=== PATIENT | female | born 1995 ===

== ENCOUNTER 2018-10-19 12:12 | Emergency (ER) | payer BC ==
--- NOTE | 2018-10-19 13:17 | ED PDOC ---
HPI: General Adult Time Seen by Provider: 10/19/18 12:21 Chief Complaint (Nursing): ENT Problem Chief Complaint (Provider): Anxious, ENT complaints History Per: Patient, Continuing Education Dean (Deirdre Ramos #[id number]) History/Exam Limitations: no limitations Onset/Duration Of Symptoms: Sudden Onset (2 hours ago) Current Symptoms Are (Timing): Still Present Additional Complaint(s): 23 year old female presents to the ED for evaluation of feeling anxious / shaky with diffuse head/ears/nose/throat pain which was sudden onset two hours ago. Patient also notes paresthesia in hands, shortness of breath, palpitations, nausea, and four episodes of non-bloody non-bilious vomiting. She denies ever having these symptoms before, and identifies no particular stresses in her life currently. Otherwise, denies fever, visual changes, sick contact, recent travel, suicidal ideation, homicidal ideation, abdominal pain, chest pain, cough, and taking any meds prior to arrival. LNMP: 1 month ago PMD: none provided Past Medical History Reviewed: Historical Data, Nursing Documentation, Vital Signs Vital Signs: Last Vital Signs Temp 98.7 F 10/19/18 12:15 Pulse 66 10/19/18 12:15 Resp 18 10/19/18 12:15 BP 100/67 10/19/18 12:15 Pulse Ox 99 10/19/18 12:15 - Medical History PMH: No Chronic Diseases - Surgical History Surgical History: No Surg Hx - Family History Family History: States: Unknown Family Hx - Social History Current smoker - smoking cessation education provided: No Drugs: Denies - Home Medications Home Medications: Ambulatory Orders Medication Instructions Recorded Naproxen 500 mg PO BID PRN #20 tab 10/19/18 - Allergies Allergies/Adverse Reactions: Allergies Allergy/AdvReac Type Severity Reaction Status Date / Time No Known Allergies Allergy Verified 10/19/18 12:14 Review of Systems ROS Statement: Except As Marked, All Systems Reviewed And Found Negative Constitutional: Negative for: Fever ENT: Positive for: Other (diffuse head/ears/nose/throat pain) Cardiovascular: Positive for: Palpitations. Negative for: Chest Pain Respiratory: Positive for: Shortness of Breath. Negative for: Cough Gastrointestinal: Positive for: Nausea, Vomiting (x4 episodes non-bloody non- bilious). Negative for: Abdominal Pain Neurological: Positive for: Other (paresthesia in hands) Psych: Positive for: Anxiety (feeling anxious and shaky). Negative for: Suicidal ideation (or homicidal ideation) Physical Exam - Reviewed Nursing Documentation Reviewed: Yes Vital Signs Reviewed: Yes - Physical Exam Comments: GENERAL APPEARANCE: Patient is awake, alert, oriented x 3; anxious appearing, tearful. SKIN: Warm, dry; (-) cyanosis HEAD: (-) scalp swelling, (-) scalp tenderness. EYES: (-) conjunctival injection (-) scleral icterus, (-) nystagmus. ENMT: Mucous membranes moist. Airway patent: (-) stridor. Pharynx: clear, uvula midline (-) erythema (-) exudate (-) hypertrophy. TMs: nonbulging and nonerythematous bilaterally. Ear canals: unremarkable bilaterally (-) erythema (-) exudate. NECK: Supple, FROM (-) tenderness, (-) stiffness, (-) lymphadenopathy. HEART AND CARDIOVASCULAR: (-) irregularity (-) tachycardia CHEST AND RESPIRATORY: (-) rales, (-) rhonchi, (-) wheezes; breath sounds equal. Respirations mildly labored, speaks in full sentences (-) retractions. ABDOMEN: Soft, (-) distention, (-) tenderness, (-) guarding. NEURO AND PSYCH: Mental status as above. Affect: anxious. shaft repairer: Intact. Pupils equal and reactive; EOMI and painless; (-) facial asymmetry; tongue midline. Strength and sensation symmetric. Cerebellar tests intact. Gait: steady. Speech: clear. - Laboratory Results Result Diagrams: 10/19/18 13:36 10/19/18 13:36 - ECG O2 Sat by Pulse Oximetry: 99 (RA) Pulse Ox Interpretation: Normal Medical Decision Making Medical Decision Making: Initial Impression: nausea, vomiting, paresthesia, to consider anxiety Time: 1300 Initial Plan: --CMP --Drug screen --Lipase --U-preg --CBC with differential --Meclizine 25mg PO --Tylenol 650mg PO --Xanax 0.25mg PO --Zofran 4mg IVP --Urinalysis --Reevaluate 1400 Labs reviewed, slight hypokalemia noted otherwise unremarkable. KDur 20mg PO and EKG ordered. On re-evaluation, patient with continued vomiting and reports of headache radiating to the eyes. Head CT without contrast, coag profile, and Reglan 10mg IVP ordered. 1425 EKG: NSR @ 83bpm, (-) ST elevation, QTc [address] 1500 Patient sleeping comfortably on re-evaluation. CT reviewed, radiology report follows: Date of service: 10/19/2018 PROCEDURE: CT HEAD WITHOUT CONTRAST. HISTORY: headache, vomiting COMPARISON: None available. TECHNIQUE: Axial computed tomography images were obtained through the head/brain without intravenous contrast. Supplemental Coronal and Sagittal projections created and reviewed. Radiation dose: Total exam DLP = 732.39. mGy-cm. This CT exam was performed using one or more of the following dose reduction techniques: Automated exposure control, adjustment of the mA and/or kV according to patient size, and/or use of iterative reconstruction technique. FINDINGS: HEMORRHAGE: No intracranial hemorrhage. BRAIN: No mass effect or edema. No atrophy or chronic microvascular ischemic changes. VENTRICLES: Unremarkable. No hydrocephalus. CALVARIUM: Unremarkable. PARANASAL SINUSES: Unremarkable as visualized. No significant inflammatory changes. MASTOID AIR CELLS: Unremarkable as visualized. No inflammatory changes. OTHER FINDINGS: None. IMPRESSION: No acute or significant abnormalities to account for the clinical presentation. 1530 On re-evaluation, vomiting now resolved. Patient reports slight persistent headache and photophobia. Toradol 30mg IVP ordered. PO challenge ordered. 1615 Patient was able to tolerate PO intake without further vomiting. On re- evaluation, patient sleeping comfortably. When awakened by ED staff, patient reports improvement of symptoms. On exam, patient remains AAOx3, in no acute distress. Lungs clear to auscultation, cardiac RRR, abdomen soft, non-tender, repeat neuro exam shows no focal findings. Vitals stable. Lab/Diagnostic results d/w the patient in great detail. Diagnosis of panic attack, headache, hypokalemia d/w the patient. Based on history, exam and diagnostic results, plan will be for outpatient follow up with PMD/clinic/neuro. Patient instructed to follow-up with pmd / referral provided / the clinic in 1- 2 days without fail. Advised to take medication as prescribed. Return to the emergency room at any time for any new or worsening symptoms. Patient states she fully agrees with and understands discharge instructions. States that she agrees with the plan and disposition. Verbalized and repeated discharge instructions and plan. I have given the patient opportunity to ask any additional questions. Scribe Attestation: Documented by Micki Saucedo, acting as a scribe for Ira Miguel PA-C. Provider Scribe Attestation: All medical record entries made by the Scribe were at my direction and personally dictated by me. I have reviewed the chart and agree that the record accurately reflects my personal performance of the history, physical exam, medical decision making, and the department course for this patient. I have also personally directed, reviewed, and agree with the discharge instructions and disposition. Disposition - Clinical Impression Clinical Impression: Panic attack, Headache, Hypokalemia, Nausea and vomiting - Patient ED Disposition Is Patient to be Admitted: No Counseled Patient/Family Regarding: Studies Performed, Diagnosis, Need For Followup, Rx Given - Disposition Referrals: [facility] [Outside] [facility] [Outside] Concepcion Ferro MD [Medical Doctor] - Disposition: Routine/Home Disposition Time: 16:15 Condition: STABLE Additional Instructions: La atencin mdica de emergencia que recibi hoy se dirigi a willy sntomas agudos. Si le recetaron algn medicamento, llnelo y tmelo segn las indicac iones. Los sntomas pueden tardar varios ricardo en resolverse. Regrese al Departamento de Emergencias si willy sntomas empeoran, no mejoran o si tiene otros problemas. Comunquese con hernandes mdico dentro de 2 ricardo para farhat nueva evaluacin y vane un seguimiento o llame a abdoul de los mdicos / clnicas a los que crooks sido referido y que figuran en el formulario de Informacin de visita al paciente que se incluye en hernandes paquete de juan. Lleve todos los documentos que recibi al momento del juan junto con los medicamentos que est tomando para hernandes visita de seguimiento. Nuestro tratamiento no puede reemplazar la atencin mdica continua por parte de un proveedor de atencin primaria (PCP) fuera del departamento de emergencias. Prescriptions: Naproxen 500 mg PO BID PRN #20 tab PRN Reason: Headache Instructions: Panic Disorder, Hypokalemia, High Potassium Diet, Anxiety, Adult (DC), Headache, Adult (DC), Nausea and Vomiting, Adult (DC) Forms: You[employer] (Kazakh) Print Language: SWEDISH - POA Present On Arrival: None Results - Diagnostic Imaging Results Radiology Results Head CT 10/19/18 14:08 IMPRESSION: No acute or significant abnormalities to account for the clinical presentation. - Lab Results Lab Results: 10/19/18 10/19/18 10/19/18 15:11 13:36 13:36 WBC RBC Hgb Hct MCV MCH MCHC RDW Plt Count MPV Neut % (Auto) Lymph % (Auto) [place] % (Auto) Eos % (Auto) Baso % (Auto) Neut # (Auto) Lymph # (Auto) [place] # (Auto) Eos # (Auto) Baso # (Auto) PT 12.9 INR 1.1 APTT 27.3 Sodium 137 Potassium 3.3 L Chloride 102 Carbon Dioxide 22 Anion Gap 16 BUN 13 Creatinine 0.6 L Est GFR ( Amer) > 60 Est GFR (Non-Af Amer) > 60 Random Glucose 104 Calcium 9.3 Total Bilirubin 0.5 AST 28 ALT 23 Alkaline Phosphatase 72 Total Protein 8.7 H Albumin 4.7 Globulin 4.0 H Albumin/Globulin Ratio 1.2 Lipase 106 Urine Color Yellow Urine Clarity Clear Urine pH 5.0 Ur Specific [place] 1.023 Urine Protein Negative Urine Glucose (UA) Neg Urine Ketones Trace Urine Blood Negative Urine Nitrate Negative Urine Bilirubin Negative Urine Urobilinogen 0.2-1.0 Ur Leukocyte Esterase Neg Urine RBC (Auto) 1 Urine Microscopic WBC < 1 Ur Squamous Epith Cells 2 Urine Opiates Screen Urine Methadone Screen Ur Barbiturates Screen Ur Phencyclidine Scrn Ur Amphetamines Screen U Benzodiazepines Scrn U Oth Cocaine Metabols U Cannabinoids Screen 10/19/18 10/19/18 13:36 13:36 WBC 9.0 RBC 4.14 Hgb 12.6 Hct 36.9 MCV 89.0 MCH 30.5 MCHC 34.2 RDW 13.0 Plt Count 263 MPV 9.2 Neut % (Auto) 69.3 Lymph % (Auto) 24.0 [place] % (Auto) 4.7 Eos % (Auto) 1.3 Baso % (Auto) 0.7 Neut # (Auto) 6.2 Lymph # (Auto) 2.2 [place] # (Auto) 0.4 Eos # (Auto) 0.1 Baso # (Auto) 0.1 PT INR APTT Sodium Potassium Chloride Carbon Dioxide Anion Gap BUN Creatinine Est GFR ( Amer) Est GFR (Non-Af Amer) Random Glucose Calcium Total Bilirubin AST ALT Alkaline Phosphatase Total Protein Albumin Globulin Albumin/Globulin Ratio Lipase Urine Color Urine Clarity Urine pH Ur Specific [place] Urine Protein Urine Glucose (UA) Urine Ketones Urine Blood Urine Nitrate Urine Bilirubin Urine Urobilinogen Ur Leukocyte Esterase Urine RBC (Auto) Urine Microscopic WBC Ur Squamous Epith Cells Urine Opiates Screen Negative Urine Methadone Screen Negative Ur Barbiturates Screen Negative Ur Phencyclidine Scrn Negative Ur Amphetamines Screen Negative U Benzodiazepines Scrn Negative U Oth Cocaine Metabols Negative U Cannabinoids Screen Negative
[2018-10-19 13:45] LABS: BASO # 0.1 K/uL (0.0-0.2); BASO % 0.7 % (0.0-2.0); EOS # 0.1 K/uL (0.0-0.7); EOS % 1.3 % (0.0-4.0); HEMOGLOBIN 12.6 g/dL (12.0-16.0); LYMPH # 2.2 K/uL (1.0-4.3); MEAN CORPUSCULAR HEMOGLOBIN 30.5 pg (27.0-31.0); MEAN CORPUSCULAR HGB CONC 34.2 g/dL (33.0-37.0); MEAN PLATELET VOLUME 9.2 fl (7.2-11.7); MONO # 0.4 K/uL (0.0-0.8); MONO % 4.7 % (0.0-10.0); NEUT # 6.2 K/uL (1.8-7.0); NEUT % 69.3 % (50.0-75.0); NRBC % 0.1 % (0.0-0.0); RBC 4.14 Mil/uL (3.80-5.20)
[2018-10-19 13:48] LABS: SQUAMOUS EPITHIAL 2 /hpf (0-5); URINE BILIRUBIN NEGATIVE (NEGATIVE); URINE BLOOD NEGATIVE (NEGATIVE); URINE CLARITY CLEAR (Clear); URINE COLOR YELLOW (YELLOW); URINE GLUCOSE (UA) NEG (NEGATIVE); URINE LEUKOCYTE ESTERASE NEG Leu/uL (Negative); URINE PROTEIN NEGATIVE (NEGATIVE); URINE UROBILINOGEN 0.2-1.0 mg/dL (0.2-1.0)
[2018-10-19 13:53] LABS: ALB/GLOB RATIO 1.2 (1.0-2.1); ALBUMIN 4.7 g/dL (3.5-5.0); ALT/SGPT 23 U/L (9-52); AST/SGOT 28 U/L (14-36); BLOOD UREA NITROGEN 13 mg/dl (7-17); CALCIUM 9.3 mg/dL (8.4-10.2); GFR NON-AFRICAN AMERICAN > 60; LIPASE 106 U/L (23-300)
[2018-10-19 14:01] LABS: BARBITURATES, UR NEGATIVE (NEGATIVE); BENZODIAZEPINES, UR NEGATIVE (NEGATIVE); OPIATES, UR NEGATIVE (NEGATIVE); PHENCYCLIDINE, UR NEGATIVE (NEGATIVE)
[2018-10-19] MEDS ORDERED: Potassium Chloride 20 mEq ER Tab PO ONE ×2 (14:01→15:40)
--- NOTE | 2018-10-19 15:03 | CT ---
Date of service: 10/19/2018 PROCEDURE: CT HEAD WITHOUT CONTRAST. HISTORY: headache, vomiting COMPARISON: None available. TECHNIQUE: Axial computed tomography images were obtained through the head/brain without intravenous contrast. Supplemental Coronal and Sagittal projections created and reviewed. Radiation dose: Total exam DLP = 732.39. mGy-cm. This CT exam was performed using one or more of the following dose reduction techniques: Automated exposure control, adjustment of the mA and/or kV according to patient size, and/or use of iterative reconstruction technique. FINDINGS: HEMORRHAGE: No intracranial hemorrhage. BRAIN: No mass effect or edema. No atrophy or chronic microvascular ischemic changes. VENTRICLES: Unremarkable. No hydrocephalus. CALVARIUM: Unremarkable. PARANASAL SINUSES: Unremarkable as visualized. No significant inflammatory changes. MASTOID AIR CELLS: Unremarkable as visualized. No inflammatory changes. OTHER FINDINGS: None. IMPRESSION: No acute or significant abnormalities to account for the clinical presentation.
[2018-10-19 15:25] LABS: INR 1.1; PROTHROMBIN TIME 12.9 Seconds (9.8-13.1)
[2018-10-19 15:28] LABS: PARTIAL THROMBOPLASTIN TIME 27.3 Seconds (25.6-37.1)
[2018-10-19 16:37] VITALS: BP 112/68; PULSE 68; RESP 16; TEMP 98.2
[2018-10-20 02:21] VITALS: O2SAT 99
--- NOTE | 2018-10-20 09:04 | CARD ---
APPROVED REPORT Date of service: 10/19/2018 EKG Measurement Heart [id number] <Conclusion> Normal sinus rhythm Normal Electrocardiogram
== END 2018-10-19 16:38 | disposition home or self-care (01) ==
LOC: H.ER 12:12
DX: F41.0 Panic disorder [episodic paroxysmal anxiety] (principal); R51 Headache; E87.6 Hypokalemia; R11.2 Nausea with vomiting, unspecified
CPT/HCPCS: 70450; 80053; 81003; 81025; 83690; 85025; 85610; 85730; 93005; 96374; 96375; 99282; G0480; J1885; J2405; J2765